=== PATIENT | male | born 2000 | race American Indian/Alaskan Native ===

== ENCOUNTER 2019-04-28 16:59 | Emergency (ER) | payer SELFPAY ==
[2019-04-28] MEDS: SODIUM CHLORIDE 0.9% 1000 ML 1,000 ML IV ONE (17:54)
[2019-04-28] MEDS: IBUPROFEN 600 MG TAB PO ONE (17:54)
[2019-04-28 17:57] VITALS: BP 113/65
--- NOTE | 2019-04-28 18:11 | Emergency Department Report ---
- General Chief Complaint: Fever Stated Complaint: FLU SX Time Seen by Provider: 04/28/19 17:34 Source: patient Mode of arrival: Ambulatory Limitations: No Limitations - History of Present Illness Initial Comments: This is a 18-year-old male nontoxic well in appearnce with no signs of distress presents with dry nonproductive cough, rhinnorrhea, and nasal congestion x4 days. Patient denies any chest pain, shortness of breathe, fever, chills, nausea, vomiting, headache, stiff neck, abdominal pain, numbness or tingling. Patient denies any recent travels, long car rides, or recent hospital stays. Denies any allergies or significant PMH. MD Complaint: cough, rhinorrhea, nasal congestion -: days(s) (4) Severity: mild Improves With: nothing Worsens With: nothing Associated Symptoms: rhinorrhea, nasal congestion, cough. denies: fever, chills, myalgias, diaphoresis, headache, sore throat, stiff neck, chest pain, shortness of breath, abdominal pain, nausea, vomiting, diarrhea, dysuria, rash, confusion, right sweats, weight loss, epistaxis, hoarseness, ear pain Treatments Prior to Arrival: none - Related Data Allergies Allergy/AdvReac Type Severity Reaction Status Date / Time No Known Allergies Allergy Unverified 04/28/19 17:05 ED Review of Systems ROS: Stated complaint: FLU SX Other details as noted in HPI Constitutional: denies: chills, fever Eyes: denies: eye pain, eye discharge, vision change ENT: congestion. denies: ear pain, throat pain Respiratory: cough. denies: shortness of breath, wheezing Cardiovascular: denies: chest pain, palpitations Endocrine: no symptoms reported Gastrointestinal: denies: abdominal pain, nausea, diarrhea Genitourinary: denies: urgency, dysuria Musculoskeletal: denies: back pain, joint swelling, arthralgia Skin: denies: rash, lesions Neurological: denies: headache, weakness, paresthesias Psychiatric: denies: anxiety, depression Hematological/Lymphatic: denies: easy bleeding, easy bruising ED Past Medical Hx - Past Medical History Previous Medical History?: No - Surgical History Past Surgical History?: No - Social History Smoking Status: Current Every Day Smoker Substance Use Type: None ED Physical Exam - General Limitations: No Limitations General appearance: alert, in no apparent distress - Head Head exam: Present: atraumatic, normocephalic - Eye Eye exam: Present: normal appearance - ENT ENT exam: Present: normal exam, normal orophraynx - Neck Neck exam: Present: normal inspection, full ROM. Absent: tenderness, meningismus, lymphadenopathy - Respiratory Respiratory exam: Present: normal lung sounds bilaterally. Absent: respiratory distress, wheezes, rales, rhonchi, stridor, chest wall tenderness, accessory muscle use, decreased breath sounds, prolonged expiratory - Cardiovascular Cardiovascular Exam: Present: regular rate, normal rhythm, normal heart sounds. Absent: bradycardia, tachycardia, irregular rhythm, systolic murmur, diastolic murmur, rubs, gallop - Extremities Exam Extremities exam: Present: normal inspection, full ROM - Back Exam Back exam: Present: normal inspection, full ROM. Absent: tenderness, CVA tenderness (R), CVA tenderness (L), muscle spasm, paraspinal tenderness, vertebral tenderness, rash noted - Neurological Exam Neurological exam: Present: alert, oriented X3, normal gait - Psychiatric Psychiatric exam: Present: normal affect, normal mood - Skin Skin exam: Present: warm, dry, intact, normal color. Absent: rash ED Course Vital Signs 04/28/19 17:55 Temperature 98.0 F Pulse Rate 67 Respiratory 20 Rate Blood Pressure 113/65 O2 Sat by Pulse 100 Oximetry - Reevaluation(s) Reevaluation #1: 04/28/19 18:10 Patient is speaking in full sentences with no signs of distress noted. ED Medical Decision Making - Medical Decision Making 18-year-old male that presents with viral bronchitis like symptoms. Patient is stable and was examined by me. CXR unremarkable and dictated by radiologist. Patient was instructed for supportive care. Vital signs are stable. Patient was instructed to Follow-up with a primary care doctor in 3-5 days or if symptoms worsen and continue return to emergency room as soon as possible. At time of discharge, the patient does not seem toxic or ill in appearance. No acute signs of distress noted. Patient agrees to discharge treatment plan of care. No further questions noted by the patient. Critical care attestation.: If time is entered above; I have spent that time in minutes in the direct care of this critically ill patient, excluding procedure time. ED Disposition Clinical Impression: Viral bronchitis Disposition: Z-07 MED SCREENING EXAM-LEFT Is pt being admited?: No Does the pt Need Aspirin: No Condition: Stable Instructions: Acute Bronchitis (ED) Additional Instructions: Follow-up with a primary care doctor in 3-5 days or if symptoms worsen and continue return to the emergency department as soon as possible. Referrals: PRIMARY CARE, [Primary Care Provider] - 3-5 Days CHENCHO RENDON MD [Staff Physician] - 3-5 Days Forms: Work/School Release Form(ED)
--- NOTE | 2019-04-28 18:12 | XRay Report ---
CHEST 2 VIEWS INDICATION / CLINICAL INFORMATION: cough/fever. COMPARISON: None available. FINDINGS: SUPPORT DEVICES: None. HEART / MEDIASTINUM: No significant abnormality. LUNGS / PLEURA: No significant pulmonary or pleural abnormality. No pneumothorax. ADDITIONAL FINDINGS: No significant additional findings. IMPRESSION: No acute finding. Signer Name: Trent Finn MD Signed: 04/28/2019 6:08 PM Workstation Name: [id number]
== END 2019-04-28 18:00 | disposition left against medical advice (07) ==
LOC: ED 16:59
DX: J20.8 Acute bronchitis due to other specified organisms (principal); F17.200 Nicotine dependence, unspecified, uncomplicated
CPT/HCPCS: 71046

== ENCOUNTER 2019-08-20 22:09 | Emergency (ER) | payer SELFPAY ==
[2019-08-20 23:52] VITALS: BP 115/75
--- NOTE | 2019-08-21 01:05 | Emergency Department Report ---
Chief Complaint: Urogenital-Male Stated Complaint: STD CHECK Time Seen by Provider: 08/21/19 01:00 - HPI History of Present Illness: Patient is a 18-year-old male that presents emergency room with complaints of penile discharge and dysuria and STD check. Patient states his symptoms started today. Patient denies fever. Patient denies myalgias and arthralgias. Patient denies sore throat. Patient denies chest pain or shortness of breath. Patient denies abdominal pain. Patient denies pelvic pain. Patient denies recent travel. Patient denies recent international travel. Patient denies exposure to the novel coronavirus. Patient denies sick contacts. Patient denies fever and chills. Patient denies cough. Patient denies diarrhea. Patient denies coming in contact with anybody with symptoms of the novel coronavirus. - ROS Review of Systems: 10 point review of systems done and were negative. Patient denies any other symptoms. - Exam Vital Signs: Vital Signs 08/20/19 23:31 Temperature 98.8 F Pulse Rate 64 Respiratory 18 Rate Blood Pressure 115/75 O2 Sat by Pulse 100 Oximetry Physical Exam: The patient appeared well nourished and normally developed. Vital signs as documented. Head exam is unremarkable. No scleral icterus or corneal arcus noted. Neck is supple Lungs are clear to auscultation and percussion. Cardiac exam reveals the Rhythm is regular. First and second heart sounds normal. No murmurs, rubs or gallops. MSE screening note: Focused history and physical exam performed. Due to findings the following was ordered: ED Medical Decision Making - Medical Decision Making Patient is a 18-year-old male that presents emergency room with STD check and penile discharge and dysuria. Patient's clinical findings are consistent with a possible STD. Patient does not require further emergency medical services. Patient is medically clear. Patient given resources. Patient given discharge instructions. - Differential Diagnosis STD check, dysuria, penile discharge. ED Disposition for [facility] [place] Clinical Impression: Penile discharge, Dysuria Disposition: - MED SCREENING EXAM-LEFT Is pt being admited?: No Does the pt Need Aspirin: No Condition: Stable Instructions: Sexually Transmitted Diseases (ED), Safe Sex (ED) Additional Instructions: Patient to follow-up with primary care in 2 to 3 days. Patient to follow-up with health department in 2 to 3 days. Patient to rest. Patient to increase water. Patient to 6 until cleared by primary care. Patient to take Tylenol or ibuprofen as needed for pain. Patient to return to the ER if condition worsens, changes or new symptoms arise. Referrals: PRIMARY CAREMD [Primary Care Provider] - 2-3 Days CHENCHO RENDON MD [Staff Physician] - 2-3 Days [facility] [Outside] - 2-3 Days Time of Disposition: 01:05
== END 2019-08-21 01:18 | disposition left against medical advice (07) ==
LOC: ED 22:09
DX: R30.0 Dysuria (principal); R36.9 Urethral discharge, unspecified; Z53.21 Procedure and treatment not carried out due to patient leaving prior to being seen by health care provider